=== PATIENT | male | born 1975 ===

== ENCOUNTER 2018-05-07 07:42 | Emergency (ER) | payer SELFPAY ==
[2018-05-07 08:24] LABS: Basophils % (Auto) 0.5 % (0.0-1.8); Eosinophils # (Auto) 0.3 K/mm3 (0.0-0.4); Eosinophils % (Auto) 4.4 % (0.0-4.3); Hematocrit 38.3 % (35.5-45.6); Lymphocytes # (Auto) 1.6 K/mm3 (1.2-5.4); Lymphocytes % (Auto) 21.2 % (13.4-35.0); Mean Corpuscular HGB Conc 34 % (32-34); Mean Corpuscular Volume 82 fl (84-94); Monocytes # (Auto) 0.7 K/mm3 (0.0-0.8); Platelet Count 304 K/mm3 (140-440); Red Blood Count 4.67 M/mm3 (3.65-5.03); Red Cell Distribution Width 19.8 % (13.2-15.2)
[2018-05-07 08:28] LABS: Bacteria,Urine 1+ /HPF (Negative); Bilirubin,Urine NEG (Negative); Blood,Urine SM (Negative); Color,Urine Yellow (Yellow); Mucus,Urine 2+ /HPF
[2018-05-07 08:33] LABS: Cocaine Screen,Urine PRESUMPTIVE NEGATIVE; Methadone Screen,Urine PRESUMPTIVE NEGATIVE; Opiate Screen,Urine PRESUMPTIVE NEGATIVE
[2018-05-07 08:40] LABS: BUN/Creatinine Ratio 11; Blood Urea Nitrogen 10 mg/dL (9-20); Calcium 8.6 mg/dL (8.4-10.2); Hemolysis Index 11
[2018-05-07 08:57] LABS: Amphetamine Screen,Urine PRESUMPTIVE POSITIVE; Benzodiazepines Screen,Urine PRESUMPTIVE POSITIVE; Cannabinoid Screen,Urine PRESUMPTIVE POSITIVE
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
[2018-05-07] MEDS ORDERED: ZITHROMAX PO ONE (09:48)
[2018-05-07] MEDS: BACTRIM DS PO SCH ×2 (10:05→21:55)
[2018-05-07] MEDS ORDERED: REMERON PO SCH (12:00)
[2018-05-07] MEDS ORDERED: ALUM-MAG HYDROX-SIMETH 200-200-20MG/5ML PO PRN (12:00)
[2018-05-07] MEDS ORDERED: CYMBALTA PO SCH (12:00)
[2018-05-07] MEDS ORDERED: TYLENOL PO PRN (12:00)
[2018-05-07] MEDS: LOPRESSOR PO SCH (12:30)
[2018-05-07] MEDS: NEURONTIN PO SCH ×2 (12:30→21:56)
[2018-05-07] MEDS: KEPPRA PO SCH ×2 (12:30→21:57)
[2018-05-07] MEDS ORDERED: NON-FORMULARY (Seroquel 200 MG) PO SCH (22:00)
[2018-05-07] MEDS ORDERED: NON-FORMULARY (Levetiracetam [Keppra Tab] 1,000 MG) PO SCH (22:00)
[2018-05-07] MEDS ORDERED: NON-FORMULARY (Mirtazapine [Remeron] 45 MG) PO SCH (22:00)
[2018-05-07] MEDS ORDERED: TYLENOL PR ONE (22:03)
[2018-05-07] MEDS: ATIVAN PO PRN (23:15)
[2018-05-07] MEDS: REMERON PO SCH (23:50)
[2018-05-08] MEDS: LOPRESSOR PO SCH ×2 (12:19→12:54)
[2018-05-08] MEDS: KEPPRA PO SCH ×2 (12:20→12:54)
[2018-05-08] MEDS: BACTRIM DS PO SCH ×2 (12:20→12:54)
[2018-05-08] MEDS: NEURONTIN PO SCH ×2 (12:21→12:54)
[2018-05-08] MEDS ORDERED: VALIUM PO ONE (12:37)
--- NOTE | 2018-05-08 13:05 | Consultation ---
History of Present Illness - Reason for Consult Consult date: 05/08/18 Reason for consult: Mental Health Evaluation Requesting physician: ANTHONY DOUGLAS - Chief Complaint Chief complaint: "The patient is lethargic and bizarre" - History of Present Psychiatric Illness 43 year old white male who presented to the ER for bizarre behavior and substance abuse. Today the patient is bizarre during the assessment. He could not answer questions logically. Per the notes, the patient endorsed SI's with a plan to jump off a bridge per the Sole [place]. Medications and Allergies Allergies Allergy/AdvReac Type Severity Reaction Status Date / Time penicillin Allergy Unknown Verified 10/08/14 11:21 phenytoin sodium Allergy Swelling Verified 10/08/14 11:21 [From Dilantin] phenytoin sodium extended Allergy Swelling Verified 10/08/14 11:21 [From Dilantin] Home Medications Medication Instructions Recorded Confirmed Last Taken Type Diazepam [Valium] 5 mg PO BID PRN 05/07/18 05/07/18 Unknown History Duloxetine HCl [Cymbalta] 30 mg PO HS 05/07/18 05/07/18 Unknown History Gabapentin [Neurontin] 100 mg PO BID 05/07/18 05/07/18 Unknown History Metoprolol [Lopressor TAB] 50 mg PO BID 05/07/18 05/07/18 Unknown History Mirtazapine [Remeron] 45 mg PO HS 05/07/18 05/07/18 Unknown History SEROquel 200 mg PO BID 05/07/18 05/07/18 Unknown History diazePAM TAB [Valium] 5 mg PO QID PRN 05/07/18 05/07/18 Unknown History levETIRAcetam [Keppra TAB] 1,000 mg PO BID 05/07/18 05/07/18 Unknown History Active Meds: Active Medications Acetaminophen (Tylenol) 650 mg PO Q4HR PRN PRN Reason: Pain MILD(1-3)/Fever >100.5/HENDRICKS Al Hydrox/Mg Hydrox/Simethicone (Alum-Mag Hydrox-Simeth [phone]/5ml) 30 ml PO Q4HR PRN PRN Reason: Indigestion Duloxetine HCl (Cymbalta) 30 mg PO [facility] Gabapentin (Neurontin) 100 mg PO BID [facility] Last Admin: 05/08/18 12:54 Dose: 100 mg Documented by: Levetiracetam (Keppra) 1,000 mg PO BID [facility] Last Admin: 05/08/18 12:54 Dose: 1,000 mg Documented by: Lorazepam (Ativan) 1 mg PO Q12H PRN PRN Reason: Agitation Last Admin: 05/07/18 23:15 Dose: 1 mg Documented by: Metoprolol Tartrate (Lopressor) 50 mg PO DAILY [facility] Last Admin: 05/08/18 12:54 Dose: 50 mg Documented by: Mirtazapine (Remeron) 45 mg PO QHS [facility] Last Admin: 05/07/18 23:50 Dose: 45 mg Documented by: Trimethoprim/Sulfamethoxazole (Bactrim Ds) 1 each PO Q12HR [facility] Last Admin: 05/08/18 12:54 Dose: 1 each Documented by: Past psychiatric history - Past Medical History Past Medical History: other (Jimenez Catheter in place) Past Surgical History: Other (Ostomy in place) - past Psychiatric treatment and history psychiatric treatment history: Unable to obtain a psy hx and fam psy hx. - Social History Social history: other (Unable to obtain) Mental Status Exam - Vital signs Last Vital Signs Temp 98.0 F 05/08/18 02:00 Pulse 84 05/08/18 12:54 Resp 18 05/08/18 02:00 BP 117/71 05/08/18 12:54 Pulse Ox 98 05/08/18 02:00 - Exam Narrative exam: Unable to complete the MSE because of the patient's condition. Results Result Diagrams: 05/07/18 08:08 05/07/18 08:08 All other labs normal. Assessment and Plan Assessment and plan: Impression: Substance Induced Psychosis. The patient is bizarre during the assessment. The patient endorsed SI's with a plan to jump off a bridge. The patient is positive for benzos, amphetamines, and marijuana. Recommendation/Plan; Continue 1013 and reassess the patient in 24 hours. Dispo: Once a psy assessment is completed, proper dispo will be determined. Will staff with Dr Ricardo Srinivasan.
[2018-05-08] MEDS ORDERED: GEODON IM ONE (16:18)
--- NOTE | 2018-05-08 16:18 | Emergency Department Report ---
Blank Doc - Documentation Documentation: Patient is a 43-year-old male is here on a 1013. Patient came acutely agitated and tried to become violent with the staff. Patient could not be redirected. Patient will be placed in a seclusion room. Patient will be monitored. Patient was given Geodon. [id number] done by physician
[2018-05-08] MEDS ORDERED: CYMBALTA PO SCH (22:00)
[2018-05-09] MEDS: KEPPRA PO SCH ×3 (05:42→22:37)
[2018-05-09] MEDS: NEURONTIN PO SCH ×3 (05:42→22:37)
[2018-05-09] MEDS: BACTRIM DS PO SCH ×3 (05:42→22:37)
[2018-05-09] MEDS: REMERON PO SCH ×2 (05:42→22:37)
[2018-05-09] MEDS: LOPRESSOR PO SCH (10:55)
[2018-05-09] MEDS: ATIVAN PO PRN ×2 (11:18→22:50)
[2018-05-10] MEDS: BACTRIM DS PO SCH ×2 (10:04→21:53)
[2018-05-10] MEDS: KEPPRA PO SCH ×2 (10:05→21:53)
[2018-05-10] MEDS: LOPRESSOR PO SCH ×2 (10:05→22:35)
[2018-05-10] MEDS: NEURONTIN PO SCH ×2 (10:05→21:53)
[2018-05-10] MEDS: ATIVAN PO PRN ×2 (11:00→22:17)
--- NOTE | 2018-05-10 15:40 | Progress Note ---
Subjective - Reason for Consult Consult date: 05/10/18 Reason for consult: Psychiatry Follow-up - Chief Complaint Chief complaint: "I feel better" 43 year old white male who presented to the ER for bizarre behavior and substance abuse. Today the patient is calm and cooperative during the assessment, He is more organized today. He stated that his main issues is substance abuse and homelessness. He stated that he is seen at [facility] for medical/mental health services. He stated that he does not live in that area anymore ([place]). He was asked about a statement he made on arrival to the ER referencing jumping from a bridge to kill himself. he stated, "I don't remember saying that." The patient was positive for several substances. He denies SI/HI's and AVH's. He denies any side effects of his medications. Mental Status Exam - Vital signs Last Vital Signs Temp 97.4 F L 05/10/18 08:09 Pulse 80 05/10/18 10:05 Resp 16 05/10/18 08:09 BP 156/106 05/10/18 10:05 Pulse Ox 97 05/10/18 08:09 - Exam Narrative exam: MSE: Appearance: calm, cooperative Behavior: regular eye contact Speech: regular rate and tone Mood: "okay" Affect: congruent to mood Thought Process: circumstantial Thought Content: denies SI/HI and AVH's Motor Activity: ambulatory Cognition: A/Ox 3 Insight: fair Judgment: fair Assessment and Plan Impression: Substance Induced Psychosis. Hx of depression. Substance Use DO (amphetamines). Cannabis Use DO. The patient is calm and cooperative during the assessment. Recommendation/Plan; Reevaluate the patient's 1013 in 24 hours. Continue Remeron 45 mg PO HS for depression. Discussed possible suicidality/medication induced maria m with the patient reference Remeron. Dispo: If the 1013 is rescinded in 24, he can follow up with [facility] for outpatient psy services. Staffed with Dr Stacey Srinivasan.
[2018-05-10] MEDS: REMERON PO SCH (21:53)
--- NOTE | 2018-05-11 11:23 | Progress Note ---
Subjective - Reason for Consult Consult date: 05/11/18 Reason for consult: Psychiatry Follow-up - Chief Complaint Chief complaint: "I 'm hearing voices" 43 year old white male who presented to the ER for bizarre behavior and substance abuse. Today the patient is cooperative during the assessment. He stated that he feel somewhat suicidal today. He stated that the Remeron makes him feel "weird." The patient denied SI's yesterday. Also, he stated that he is hearing all types of voices. He could not elaborate about what the voices are saying when asked. He was asked about other medications he may have taken in the past for depression, he stated " Cymbalta because it helps me with pain also." He denies HI's and VH's. Mental Status Exam - Vital signs Last Vital Signs Temp 98.7 F 05/11/18 07:30 Pulse 91 H 05/11/18 07:30 Resp 18 05/11/18 07:30 BP 120/91 05/11/18 07:30 Pulse Ox 98 05/11/18 07:30 - Exam Narrative exam: MSE: Appearance: calm, cooperative Behavior: poor eye contact Speech: regular rate and tone Mood: "okay" Affect: flat Thought Process: circumstantial Thought Content: denies HI and VH's Motor Activity: ambulatory Cognition: A/Ox 3 Insight: variable Judgment: variable Assessment and Plan Impression: Substance Induced Psychosis. Hx of Depression. Substance Use DO (amphetamines). Cannabis Use DO. The patient is calm and cooperative during the assessment. Recommendation/Plan; Continue 1013. Start Cymbalta 30 mg PO daily for depression, Seroquel 100 mg Po HS for psychosis, and klonolin 0.5 mg PO Q12 PRN for acute anxiety. D/C'd Remeron. Discussed possible suicidality/medication induced maria m with the patient reference Cymbalta. Dispo: The patient was referred to inpatient psy services. Dakotah prater with Dr Ricardo Srinivasan.
[2018-05-11] MEDS: NEURONTIN PO SCH ×2 (11:43→21:48)
[2018-05-11] MEDS: BACTRIM DS PO SCH ×2 (11:43→21:53)
[2018-05-11] MEDS: LOPRESSOR PO SCH ×2 (11:43→21:52)
[2018-05-11] MEDS: KEPPRA PO SCH ×2 (11:43→21:53)
[2018-05-11] MEDS: CYMBALTA PO SCH (13:25)
[2018-05-11] MEDS: ATIVAN PO PRN (21:51)
[2018-05-12] MEDS: BACTRIM DS PO SCH ×2 (12:10→21:40)
[2018-05-12] MEDS: NEURONTIN PO SCH ×2 (12:11→21:40)
[2018-05-12] MEDS: CYMBALTA PO SCH (12:11)
[2018-05-12] MEDS: LOPRESSOR PO SCH ×2 (12:11→21:41)
[2018-05-12] MEDS: KEPPRA PO SCH ×2 (12:11→21:40)
--- NOTE | 2018-05-12 13:47 | Progress Note ---
Subjective - Reason for Consult Consult date: 05/12/18 Reason for consult: Psychiatry Follow-up - Chief Complaint Chief complaint: "I have alot going on" 43 year old white male who presented to the ER for bizarre behavior and substance abuse. Today the patient is calm and cooperative during the assessment. He stated that he have a lot of issues to that need to be taken care of. He stated that it's hard for him to cope with issues that come up in his l harinder. He stated that he feel "suicidal a little." He denies HI's and AVH's. He denies any side effects of his medications. Mental Status Exam - Vital signs Last Vital Signs Temp 97.3 F L 05/12/18 09:59 Pulse 89 05/12/18 12:11 Resp 20 05/12/18 09:59 BP 135/86 05/12/18 12:11 Pulse Ox 97 05/12/18 09:59 - Exam Narrative exam: MSE: Appearance: calm, cooperative Behavior: poor eye contact Speech: regular rate and tone Mood: "okay" Affect: flat Thought Process: circumstantial Thought Content: denies HI and VH's Motor Activity: ambulatory Cognition: A/Ox 3 Insight: variable to fair Judgment: variable to fair Assessment and Plan Impression: Substance Induced Psychosis. Hx of Depression. Substance Use DO (amphetamines). Cannabis Use DO. The patient is calm and cooperative during the assessment. Recommendation/Plan; Continue 1013, Start Cymbalta 30 mg PO daily for depression, Seroquel 100 mg Po HS for psychosis, and Klonopin 0.5 mg PO Q12 PRN for acute anxiety. Discussed possible suicidality/medication induced maria m with the patient reference Cymbalta. Discussed generalized coping skills with the patient. Dispo: The patient was referred to inpatient psy services. Will satff with Dr Stacey Srinivasan.
--- NOTE | 2018-05-12 17:51 | Emergency Department Report ---
Blank Doc - Documentation Documentation: Patient is medically cleared at this time. Regarding the patient's Are used to patient takes Her at home and has been seizure-free for the last 3 months. Patient continued to receive Keppra while here in our emergency department. Regarding the patient's bladder cancer he has a urostomy bag that he knows how to use. Patient has a mild urinary tract infection and is receiving antibiotics which can be continued on outpatient setting. Patient is calm and cooperative during my brief interaction with the patient.
[2018-05-13] MEDS: BACTRIM DS PO SCH ×2 (11:16→21:50)
[2018-05-13] MEDS: CYMBALTA PO SCH (11:16)
[2018-05-13] MEDS: LOPRESSOR PO SCH ×2 (11:17→21:40)
[2018-05-13] MEDS: KEPPRA PO SCH ×2 (11:17→21:46)
[2018-05-13] MEDS: NEURONTIN PO SCH ×2 (11:19→21:49)
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
[2018-05-13] MEDS ORDERED: CYMBALTA PO SCH (16:30)
[2018-05-13 17:53] LABS: Bilirubin,Urine NEG (Negative); Blood,Urine MOD (Negative); Color,Urine Yellow (Yellow); Urobilinogen,Urine < 2.0 mg/dL (<2.0)
[2018-05-13 17:54] LABS: RBC,Urine > 182.0 /HPF (0.0-6.0)
[2018-05-14] MEDS: BACTRIM DS PO SCH ×2 (10:36→22:50)
[2018-05-14] MEDS: KEPPRA PO SCH ×2 (10:37→22:50)
[2018-05-14] MEDS: LOPRESSOR PO SCH ×2 (10:37→22:51)
[2018-05-14] MEDS: NEURONTIN PO SCH ×2 (10:37→22:51)
--- NOTE | 2018-05-14 16:59 | Progress Note ---
Subjective - Reason for Consult Consult date: 05/14/18 Reason for consult: Psychiatric Follow-up Evaluation - Chief Complaint Chief complaint: "I'm good " Patient is a 43 year old white male who presented to the ER for bizarre behavior and substance abuse. Today the patient is calm and cooperative during the assessment. He continues to deny SI/HI's, A/VH's, delusions, cravings. He states, " I've learned I need to stay clean, take my medications, and maintain my health." He reports appropriate sleep and appetite. Patient is medication compliant. He denies any side effects of medications. Provider spoke with patient's mother at 5:11 pm to gain collateral. She states that patient is in no imminent danger to self or others. Per mother patient has no access to weapons and is not a threat to self/others. Mental Status Exam - Vital signs Last Vital Signs Temp 98.0 F 05/14/18 14:30 Pulse 68 05/14/18 14:30 Resp 18 05/14/18 14:30 BP 107/66 05/14/18 14:30 Pulse Ox 97 05/14/18 14:30 - Exam Narrative exam: Mental Status Exam Appearance: calm, cooperative Behavior: regular eye contact Speech: regular rate and tone Mood: "I'm good" Affect: flat Thought Process: circumstantial Thought Content: denies SI/HI's, A/VH's, and delusions Motor Activity: ambulatory Cognition: A/O x 3 Insight: fair Judgment: fair Assessment and Plan Impression: Substance Induced Psychosis. Hx of Depression. Substance Use DO (amphetamines). Cannabis Use DO. The patient is calm and cooperative during the assessment. He denies SI/HI's, A/VH's, and delusions. At the time of discharge patient is in no imminent danger to self/others. Recommendation/Plan: 1. Will rescind 1013. 2. Continue Cymbalta 60 mg PO daily for depression. Discussed possible suicidality/medication induced maria m with the patient reference Cymbalta. Discussed generalized coping skills with the patient. 3. Continue Seroquel 100 mg Po HS for psychosis and Klonopin 0.5 mg PO Q12 PRN for acute anxiety. 4. Will attempt to gain collateral . With patient's consent will contact patient's mother [phone]. 5. Discussed the importance to abstain from recreational drug use. Disposition: Will rescind 1013. Will follow-up at [facility] on 05/15/18. Patient given referrals for outpatient services. Staffed with Dr. Stacey Srinivasan. Suicide Risk Assessment I. This screening and assessment is based on information collected from the following sources: II. SUICIDE RISK SCREENING (within last 30 days): A.) Suicidal thoughts/behaviors: Yes SUICIDE RISK ASSESSMENT III. FACTORS THAT INCREASE RISK: A.) Demographic and Substance Use Factors: Yes (Marijuana, Amphetamines, and Benzodiazepines) B.) Current/Recent Factors (within past 3 months): Psychosocial/Environmental Factors: Life Stressors Physical Illness: None Cognitive/Psychological Factors: None C.) Historical Factors: None D.) Diagnostic/Symptom/Treatment Factors: None E.) Acute Risk Factor Severity (DESC; MILD/MOD/SEVERE): Mild Other factors for this individual that increase risk: None IV. FACTORS THAT DECREASE RISK: Resilience/Protective Factors: Patient want to decrease his stress and stop using recreational drugs Other factors for this individual that decrease risk: Patient denies a desire to harm self. V. Clinician's Formulation of Risk and Determination of level of Care: Patient is a 43 year old white male who presented to the ER for bizarre behavior and substance abuse. Today the patient is calm and cooperative during the assessment. He stated that his main issues is substance abuse and homelessness. He stated that he is seen at [facility] for medical/mental health services. He stated that he does not live in that area anymore ([facility]). He was asked about a statement he made on arrival to the ER referencing jumping from a bridge to kill himself. He stated, "I don't remember saying that." The patient was positive for several substances. He denies SI/HI's, AVH's, and delusions. He denies any side effects of his medications. He stated a hx of substance abuse. He acknowledged that he should have not ingested unknown substances. He stated that he will follow-up with outpatient psy/rehab services once discharged. Since being hospitalized the patient has consistently denied the desire to harm herself. Additionally, he has become insightful about how to better address his current issues. The patient is not impaired by substance. He is able to take care of her ADLs and is not at imminent risk of harm to self or others. Consequently, it is the opinion of the treatment team that the patient is at low risk of suicide and does not meet criteria to continue an involuntary psychiatric hold. Estimation of Imminent Risk: Low due to the above explanation. Determination of Level of Care based on Suicide Risk: Outpatient follow-up. Narrative description of clinical reasoning. Given the fact that the patient is willing to engage in outpatient/rehab services care and has a supportive network (mother), it is reasonable to expect that the patient will seek services. Furthermore, the patient appears future oriented and denies that his intention was to end his life. He is regretful of the decision and has several things in his life to look forward to. At this current time, he is not impulsive and does not have any risk factors to increase the likelihood of her impulsive behavior. Therefore, it is reasonable to expect that the patient will engage in outpatient/rehab services which will reduce further unsafe behaviors. . Plan and Interventions based on Suicide Risk: This patient will likely be stepped down to an outpatient mental health center in the community upon discharge and follow-up within 7 days of her discharge from the hospital. VII. Discharge/After Hours Support Plan: Patient can return back to the ER, call 911 or crisis line if symptoms of depression, anxiety, suicidality return.
[2018-05-14 21:49] VITALS: BP 139/99
--- NOTE | 2018-05-14 22:34 | Emergency Department Report ---
Blank Doc - Documentation Documentation: Patient is a 43-year-old male that was in the ER for multiple days for suicidal ideations and audiovisual hallucinations. Patient was seen by psychiatry and has been psychiatrically cleared. Psychiatry team recommended rescinding of the patient's 1013. Documents reviewed. Patient is calm and answering questions appropriately. Vision denies suicidal or homicidal ideations. Patient denies audiovisual hallucinations. Patient states he is feeling good. The patient states she is ready to go home. Patient given outpatient resources. Discharge paperwork will be given to patient. Patient will be given antibiotic for his UTI. Patient has been receiving treatment here for his UTI. Patient will be given his Cymbalta, Seroquel and Klonopin for 1 week.
== END 2018-05-14 23:00 | disposition home or self-care (01) ==
LOC: EEVIPCON 07:42 → ED 07:42
DX: F32.9 Major depressive disorder, single episode, unspecified (principal); N39.0 Urinary tract infection, site not specified; I10 Essential (primary) hypertension; F43.10 Post-traumatic stress disorder, unspecified; F15.10 Other stimulant abuse, uncomplicated; F11.10 Opioid abuse, uncomplicated; Z88.0 Allergy status to penicillin; Z88.2 Allergy status to sulfonamides
CPT/HCPCS: 36415; 80048; 80307; 81001; 85025; 87086; 93005; 93010; 96372; 99284; G0480; J3486; 80320